=== PATIENT | male | born 1990 | race Caucasian/White ===

== ENCOUNTER 2025-08-12 16:42 | Emergency (ER) | payer OTHER, SELFPAY ==
[2025-08-12 16:55] VITALS: BP 150/95; PULSE 122; RESP 18; TEMP 37.4; O2SAT 99; BMI 22.8
--- NOTE | 2025-08-12 17:04 | ED.GENADULT ---
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 He reports an hypogastric region skin abscess growing over the past few days denies systemic symptoms. Related Data Previous Rx's ?Medication ?Instructions ?Recorded cefadroxil 500 mg capsule 500 mg PO BID 7 days #14 caps 08/12/25 sulfamethoxazole 800 1 tab PO Q12H 5 days #10 tabs 08/12/25 mg-trimethoprim 160 mg tablet (Bactrim DS) Allergies Allergy/AdvReac Type Severity Reaction Status Date / Time aspirin Allergy Anaphylaxis Verified 08/12/25 16:59 [facility] Social History Social History Advance Directives: No Advance Directives Information Provided: No Do you have a plan to hurt others: No Plan Physical Exam ED Exam Exam: GENERAL: Well appearing. No apparent distress. Alert. HEAD/NECK: No visual trauma. EYES: Normal to inspection. No conjunctival erythema. No discharge. ENMT: Hearing grossly normal. External nose normal. RESPIRATORY: Respiratory effort normal. CARDIOVASCULAR: Additional details (Grossly well perfused). SKIN: No jaundice. NEUROLOGICAL: Alert. Moving all extremities x4. Additional details (No gross motor deficits. Normal tone. ). PSYCHIATRIC: Alert. Appearance appropriate for situation. Vital Signs: Vital Signs - 24 hr 08/12/25 16:55 08/12/25 18:20 Temperature 99.4 F 99.3 F Pulse Rate 122 H 100 Respiratory Rate 18 16 Blood Pressure 150/95 H 141/103 H Pulse Oximetry 99 99 Oxygen Delivery Method Room Air Room Air BMI result Body Mass Index 22.8 Course Course Course Narrative: Rapid medical examination performed in triage by Hanna Cisneros PA-C. Patient is a 35 year old assigned male at presenting to the emergency department with an abdominal abscess and facial rash. Patient states that he has a history of IVDA. Detailed physical exam and review of systems are deferred to the behavior clinician. Labs ordered. Patient placed back in the waiting room pending room availability and results. Procedures Procedure Narrative Procedure Narrative: EMERGENCY ULTRASOUND INTERPRETATION- Limited skin and soft tissue [This study was ordered, performed, and interpreted by myself. The study reveals: Impression: ?No signs of cellulitis or abscess Indication: ?Redness and swelling Skin: ?No signs of cellulitis or abscess Performed by: ?Jason Burgess MD ?Images were stored ___ Procedure: Incision and Drainage Performed by:Jason Burgess MD Indication: abscess Anesthesia was obtained with 5 ml of 1% lidocaine. The area was prepped in the usual sterile fashion. A number 11 scalpel was used to create an incision. Return was for ml of purulent fluid. The abscess was probed. Loculations were broken up. The site was packed with iodoform. Ultrasound guidance was needed. A dressing was placed over the site. The patient tolerated the procedure well. Wound care instructions were given. Post-Procedure Diagnosis: same as indication Complications: none Estimated Blood Loss: minimal Specimens Removed: no Prosthetic devices/implants: no Inspector Boiler(s): none CPT: 35665; 28834 (US-Guided) Medical Decision Making Medical Decision Making MDM Narrative: Medical Decision Makin-year-old male with several days of worsening skin abscess of the abdominal wall. No systemic symptoms. Vitals stable. Likely MRSA. Incision drainage wound packing close follow up for packing change in about 48 hours at urgent care. Wound culture sent Preliminary Favored Differential Diagnosis: [ ] among additional considered etiologies Testing Interpreted Independently: ?See below for details Radiology or Lab testing Results Reviewed: ?See below for details Consults: ?See below for details Independent Historians/External Chart Reviews: ?See below for details Social Determinants of Health Impacting MDM/Planning: ?See below for details Lab Data 08/12/25 18:39 08/12/25 18:39 Labs: Lab Results 08/12/25 Range/Units 18:39 WBC 8.7 (4.8-10.8) X10*3/uL RBC 4.09 L (4.60-5.80) X10*6/uL Hgb 12.8 L (14.0-18.0) g/dl Hct 35.8 L (42.0-52.0) % MCV 87.5 (80.0-98.0) fL MCH 31.3 (27.0-33.0) pg MCHC 35.8 (31.0-36.0) g/dl RDW 12.1 (11.0-16.0) % Plt Count 99 L (160-400) X10*3/uL MPV 11.7 (9.4-12.4) fL Immature Gran % (Auto) 0.3 (0.0-0.4) % Neut % (Auto) 76.0 H (45-73) % Lymph % (Auto) 17.2 L (20-40) % Wheeler % (Auto) 6.2 (2-11) % Eos % (Auto) 0.1 (0-4) % Baso % (Auto) 0.2 (0-2) % Lymph # (Auto) 1.5 (1.2-4.9) X10*3/uL Wheeler # (Auto) 0.5 (0.1-1.2) X10*3/uL Eos # (Auto) 0.0 (0.0-0.4) X10*3/uL Baso # (Auto) 0.0 (0.0-0.2) X10*3/uL Abs Immat Gran (auto) 0.03 (0.00-0.03) X10*3/uL Absolute Neuts (auto) 6.6 (2.0-8.3) x10*3/uL Absolute Nucleated RBC 0.000 (0.0-0.012) X10*3/uL Nucleated RBC % (auto) 0.0 (0.0-0.2) /100WBC Smear Tech's Comments VERIFIED ESR 26 H (0-15) MM/HR Lactic Acid 1.5 (0.5-2.0) mmol/L Discharge Plan Discharge Clinical Impression: Abscess of skin or subcutaneous tissue Patient Disposition: Home, Self-Care Instructions: Abscess (ED) Additional Instructions: DISCHARGE DIAGNOSES: Skin abscess, incision and drainage was performed HISTORY OF PRESENTATION: ?Abscess growing in the abdominal wall EMERGENCY DEPARTMENT COURSE,TESTS, TREATMENTS: While in the ED today incision and drainage performed with pus sent to the lab for culture. DISCHARGE MEDICATIONS: ?Cefadroxil and Bactrim antibiotics were ordered. Take ibuprofen 600 mg every 6 hours as needed if you have pain or soreness. FOLLOW-UP: ?Call your primary or general physician soon as possible to discuss your symptoms, your ED visit and to discuss follow up plans Apply an ice pack to the abdominal wall 10 minutes at a time He will need to follow up at urgent care for wound packing change in 48 hours. If you have trouble following up you can always return here in the emergency department. INSTRUCTIONS ?& RETURN PRECAUTIONS: If any symptoms change first call your primary physician, if it is after-hours your primary doctors office should have a provider dedicated regional driver you can speak with. If the symptoms are severe or very concerning to you then call 911 or return to the ED. If you develop high fevers sweating nausea vomiting inability to eat or drink fluid inability of the to tolerate or obtain the oral antibiotics we have prescribed return back to the emergency department Jason Burgess MD Emergency Physician [facility] Prescriptions: New sulfamethoxazole-trimethoprim [Bactrim DS] 800-160 mg tablet 1 tab PO Q12H 5 Days Qty: 10 0RF cefadroxil 500 mg capsule 500 mg PO BID 7 Days Qty: 14 0RF Print Language: Danish
[2025-08-12 18:20] VITALS: BP 141/103; PULSE 100; RESP 16; TEMP 37.4; O2SAT 99
--- NOTE | 2025-08-12 18:43 | PC.NURSE ---
Pt to ED 22 from triage for reports of abscess on abdomen. A/o x 3, reporting pain as 10/10. Pt difficult stick, labs collected and #22 placed to L AC.
[2025-08-12 18:51] LABS: Hematocrit 35.8 % (42.0-52.0); Hemoglobin 12.8 g/dl (14.0-18.0); Imm Gran Abs Auto 0.03 X10*3/uL (0.00-0.03); Imm Gran Pct Auto 0.3 % (0.0-0.4); Lymphocytes Absolute Auto 1.5 X10*3/uL (1.2-4.9); MANUAL DIFF FLAG SCAN; Mean Corpuscular HGB Conc 35.8 g/dl (31.0-36.0); Mean Corpuscular Hemoglobin 31.3 pg (27.0-33.0); Mean Corpuscular Volume 87.5 fL (80.0-98.0); NRBC Abs Auto 0.000 X10*3/uL (0.0-0.012); NRBC Pct Auto 0.0 /100WBC (0.0-0.2); PLT CLUMP 1; Red Blood Count 4.09 X10*6/uL (4.60-5.80); SCAN SMEAR FLAG 1
--- OUTSIDE RECORDS SUMMARY | 2025-08-12 18:58 | XMS_ITS | Clinical Summary ---
Author Organization [facility] Address [address] [place] [address] Phone Care Team Providers Care Medical Clerk Name Role Phone Physician, Pcp Unknown Primary Care Provider Anjelica vailable Allergies Active Allergy Reactions Criticality Noted Date Comments Aspirin 04/03/2025 Social History Tobacco Use Types Packs/Day Years Used Date Smoking Tobacco: Never Assessed Sex and Gender Information Value Date Recorded Sex Assigned at Not on file Legal Sex Male 9:50 AM EST Gender Identity Not on file Sexual Orientation Not on file Obstetrics History Last Filed Vital Signs Vital Sign Reading Time Taken Comments Blood Pressure 130/87 04/03/2025 10:51 PM EDT Pulse 73 04/04/2025 2:06 AM EDT Temperature 36.8 C (98.2 F) 04/03/2025 10:51 PM EDT Respiratory Rate 16 04/04/2025 2:06 AM EDT Oxygen Saturation 100% 04/04/2025 2:06 AM EDT Inhaled Oxygen Concentration - - Weight 63.5 kg (140 lb) 04/03/2025 6:10 PM EDT Height 170.2 cm (5' 7 ) 04/03/2025 6:10 PM EDT Body Mass Index 21.93 04/03/2025 6:10 PM EDT Plan of Treatment Health Maintenance Due Date Last Done Comments Hepatitis A Vaccines (1 of 2 - Risk 2-dose series) 2009 Hepatitis B Vaccines (1 of 3 - 19+ 3-dose series) 2009 Depression Screening 11/30/2024 HIV Screening 04/04/2025 Social Influencers of Health Screening 04/04/2025 COVID-19 Vaccine (3 - 2024-2 6 season) 2025 01/24/2022, 01/03/2022 Influenza Vaccine (#1) 2025 09/13/2021 Cholesterol Screening (Lipid Panel) 09/13/2026 09/13/2021, 09/13/2021 DTaP,Tdap,and Td Vaccines (2 - Td or Tdap) 10/26/2028 10/26/2018 Hepatitis C Screening Completed 12/15/2018 Pneumococcal Vaccine: Pediatrics (0 to 5 Years) and At-Risk Patients (6 to 49 Years) Aged Out 09/13/2021 No longer eligible b ased on patient's age to complete this topic HIB Vaccines Aged Out No longer eligi ble based on patient's age to complete this topic HPV Vaccines Aged Out No longer eligi ble based on patient's age to complete this topic IPV Vaccines Aged Out No longer eligi ble based on patient's age to complete this topic MMR Vaccines Aged Out No longer eligi ble based on patient's age to complete this topic Meningococcal ACWY Vaccine Aged Out N o longer eligible based on patient's age to complete this topic Meningococcal B Vaccine Aged Out No l onger eligible based on patient's age to complete this topic RSV Immunization Patients Under 20 months Aged Out No longer eligible b ased on patient's age to complete this topic Varicella Vaccines Aged Out No longer eligible based on patient's age to complete this topic Insurance [employer] Advance Directives Documents on File Type Date Recorded Patient Billing Spec Expl anation Health Care Decision (hx) 04/05/2021 SAVAGE OCHOA DIRECTIVE Care Teams Medical Clerk Relationship Specialty Start Date End Date Physician, Pcp Unknown PCP - General 04/04/25
--- NOTE | 2025-08-12 19:25 | PC.NURSE ---
this rn assumed care of pt, pt resting in stretcher, no acute distress noted. pt intermittently tachy on tele [id number] on tele.
[2025-08-12 19:34] LABS: Platelet Count 99 X10*3/uL (160-400); White Blood Count 8.7 X10*3/uL (4.8-10.8)
[2025-08-12] MEDS: Lidocaine HCl 1%/Epi 1:100,000 10 ML VIAL INFILTRATI (19:58)
[2025-08-12 20:15] LABS: Alanine Aminotransferase 112 U/L (0-40); Albumin Level 4.8 g/dL (3.5-5.0); Alkaline Phosphatase 74 U/L (39-117); Anion Gap 17 (12-20); Aspartate Amino Transferase 73 U/L (5-37); Blood Urea Nitrogen 17 mg/dL (9-16); Calcium 9.5 mg/dL (8.4-10.2); Carbon Dioxide 26 mmol/L (22-29); Chloride 99 mmol/L (96-108); Creatinine Clr Calc Pharmacy 85.9; Estimated Glomerular Filt Rate > 60; Potassium 4.5 mmol/L (3.3-5.1); Sodium 137 mmol/L (135-145); Total Protein 8.3 g/dL (6.5-8.0)
[2025-08-12 20:39] VITALS: BP 133/95; PULSE 89; RESP 20; TEMP 37.2; O2SAT 99
[2025-08-12] MEDS: Sulfamethox/Trimeth 800/160 TABLET 1 TAB PO (20:53)
== END 2025-08-12 21:14 | disposition home or self-care (01) ==
PROVIDERS: Physician Assistant Medical; Emergency Provider Emergency Medicine
DX: L02.211 Cutaneous abscess of abdominal wall (principal)
CPT/HCPCS: 10160; 36415; 76942; 80053; 83605; 85025; 85652; 86140; 87040; 87070; 87077; 87186; 87205; 99284; J2004